=== PATIENT | female | born 1980 | race Caucasian/White ===

== ENCOUNTER → 2020-09-12 | Day surgery (SDC) | payer OTHER | LOC: MAMMO 07:01 | PROVIDERS: ATTEND Family Medicine | PROC: 0H95XZX Drainage of Chest Skin, External Approach, Diagnostic (ICD-10-PCS; principal; 2020-09-12) | DX: N60.21 Fibroadenosis of right breast (principal) | CPT/HCPCS: 19283; 76098; 88305 ==